=== PATIENT | male | born 1940 | race Caucasian/White ===

== ENCOUNTER → 2020-05-08 08:02 | Outpatient (CLI) | payer MEDICARE, SELFPAY ==
[2020-05-08] MEDS: COVID-19 VACC, Ad26(JANSSEN)/PF 0.5 ML IM (08:14)
== END ==
PROVIDERS: PCP Internal Medicine; Visit Provider Internal Medicine
DX: Z23 Encounter for immunization (principal)
CPT/HCPCS: 0031A; 91303